=== PATIENT | female | born 1980 | race Caucasian/White ===

== ENCOUNTER 2019-03-09 05:52 | Inpatient (IN) ==
[2019-03-09] MEDS ORDERED: Naloxone 0.4 MG/ML INJ IVP PRN (05:56)
[2019-03-09] MEDS ORDERED: Famotidine 20 MG/2 ML VIAL IVP PRN (05:56)
[2019-03-09] MEDS ORDERED: Metoclopramide 10 MG/2 ML VIAL IVP PRN ×2 (05:56→11:59)
[2019-03-09] MEDS ORDERED: ceFAZolin 2,000 MG in Water for inj. (sterile) 20 ML IVP ONE (06:10)
[2019-03-09] MEDS ORDERED: Ringers Solution, Lactated 1,000 ML ONE ×3 (06:29→07:53)
[2019-03-09 06:57] LABS: Amphetamine Screen,Urine Negative ng/mL (Cutoff=1000); Barbiturate Screen,Urine Negative ng/mL (Cutoff=200)
[2019-03-09 06:58] LABS: Benzodiazepines Screen,Urine Negative ng/mL (Cutoff=300); Cannabinoid Screen,Urine Negative ng/mL (Cutoff = 50); Cocaine Screen,Urine Negative ng/mL (Cutoff= 300); Opiate Screen,Urine Negative ng/mL (Cutoff=300); Phencyclidine Screen,Urine Negative ng/mL (Cutoff=25)
[2019-03-09] MEDS ORDERED: CeFAZolin Premix DUPLEX 2,000 MG/50 ML BAG IVPB ONE (07:00)
[2019-03-09 07:02] LABS: Basophils % 0.3 %; Eosinophils # 0.1 K/mcL (0.0-0.6); Eosinophils % 1.5 %; Hematocrit 34.5 % (35.3-44.9); Hemoglobin 11.2 g/dL (11.5-15.4); Immature Granulocytes % 0.6 % (0-4); Lymphocytes # 1.7 K/mcL (0.6-4.6); Lymphocytes % 26.2 %; Mean Corpuscular HGB Conc 32.5 g/dL (31.6-35.5); Mean Corpuscular Hemoglobin 31.5 pg (28.0-33.3); Mean Corpuscular Volume 97.2 fL (83.0-100.0); Mean Platelet Volume 9.7 fL (9.4-12.4); Monocytes # 0.6 K/mcL (0.0-1.3); Monocytes % 9.5 %; Platelet Count 152 K/mcL (140-400); Red Blood Count 3.55 M/mcL (3.82-4.97); Red Cell Distribution Width 16.9 % (11.5-14.5); Segmented Neutrophils % 61.9 %; White Blood Count 6.5 K/mcL (4.3-11.1)
[2019-03-09] MEDS ORDERED: *HR* Oxytocin 10 UNIT/ML VIAL IM ONE (07:22)
[2019-03-09] MEDS ORDERED: *HR* Morphine Sulfate/PF 10 MG/10 ML AMPUL ONE (07:22)
[2019-03-09] MEDS ORDERED: EPHEDrine 50 MG/ML VIAL ONE (07:22)
[2019-03-09] MEDS ORDERED: Ondansetron 4 MG/2 ML VIAL ONE (07:22)
[2019-03-09] MEDS ORDERED: *HR* FentaNYL (PF) 100 MCG/2 ML VIAL ONE (07:22)
[2019-03-09] MEDS ORDERED: *HR* Phenylephrine 10 MG/ML VIAL ONE (07:22)
[2019-03-09] MEDS ORDERED: Ketorolac 30 MG/ML VIAL ONE (07:38)
[2019-03-09] MEDS ORDERED: Ondansetron 4 MG/2 ML VIAL IVP PRN ×3 (07:44→17:20)
[2019-03-09] MEDS ORDERED: *HR* OxyCODONE/APAP 5/325 TABLET PO PRN ×2 (07:44→11:59)
[2019-03-09] MEDS ORDERED: Acetaminophen IV 1,000 MG/100 ML INFUS..BTL IVPB ONE (07:44)
[2019-03-09] MEDS ORDERED: Ibuprofen 400 MG TABLET PO PRN (07:44)
[2019-03-09] MEDS ORDERED: Oxytocin 20 units/ LR 1000 mL 20 UNIT/1,000 ML BAG IVC ONE (10:18)
[2019-03-09] MEDS ORDERED: Sennosides 8.6 MG TABLET PO PRN (11:59)
[2019-03-09] MEDS: Oxytocin 20 units/ LR 1000 mL 20 UNIT/1,000 ML BAG IVC SCH ×2 (12:28→20:41)
[2019-03-09] MEDS: Acetaminophen 325 MG TABLET PO SCH ×2 (14:48→20:00)
[2019-03-09] MEDS: Ketorolac 30 MG/ML VIAL IVP SCH ×2 (15:15→20:45)
[2019-03-09] MEDS: Simethicone 80 MG TAB.CHEW PO SCH ×2 (15:15→20:50)
[2019-03-10] MEDS: Acetaminophen 325 MG TABLET PO SCH (00:09)
[2019-03-10] MEDS: Ketorolac 30 MG/ML VIAL IVP SCH (03:23)
[2019-03-10 07:52] LABS: Hematocrit 28.4 % (35.3-44.9); Immature Granulocytes % 0.4 % (0-4); Lymphocytes % 13.2 %; Mean Corpuscular HGB Conc 31.7 g/dL (31.6-35.5); Mean Corpuscular Hemoglobin 31.6 pg (28.0-33.3); Mean Corpuscular Volume 99.6 fL (83.0-100.0); Mean Platelet Volume 9.9 fL (9.4-12.4); Platelet Count 114 K/mcL (140-400); Red Blood Count 2.85 M/mcL (3.82-4.97); Segmented Neutrophils % 77.2 %; White Blood Count 7.8 K/mcL (4.3-11.1)
[2019-03-10 07:53] LABS: Basophils % 0.1 %; Eosinophils # 0.1 K/mcL (0.0-0.6); Eosinophils % 0.8 %; Monocytes # 0.7 K/mcL (0.0-1.3); Monocytes % 8.3 %; Nucleated Red Blood Cells 0.3 /100 WBC (0)
[2019-03-10] MEDS ORDERED: Prenatal Vit/FA 1 EACH TABLET PO SCH (09:00)
[2019-03-10 09:19] VITALS: BP 107/70
[2019-03-10] MEDS ORDERED: Ibuprofen 600 MG TABLET PO SCH (09:30)
== END 2019-03-10 13:30 | disposition home or self-care (01) | DRG 787 ==
LOC: 1NENULAB 05:52 → EDSTATUS 07:45 → 1NENUOBS 12:04
PROVIDERS: ADMIT Obstetrics & Gynecology; ATTEND Obstetrics & Gynecology